=== PATIENT | male | born 1990 | race Two or more races ===

== ENCOUNTER 2021-02-18 15:01 | Emergency (ER) | payer MEDICAID, OTHER ==
[~2021-02-18] VITALS: Ht 167.6 cm; Wt 72.6 kg
[2021-02-18 16:18] VITALS: BP 129/75
[2021-02-18] MEDS ORDERED: methylPREDNISolone SOD SUCC 125 MG/2 ML VL IM ONE (16:45)
[2021-02-18] MEDS ORDERED: EPINEPHrine HCL 1 MG/1 ML AMP SC ONE (16:45)
== END 2021-02-18 17:25 | disposition home or self-care (01) ==
LOC: ER 15:01 → EDBD 15:01 → ER 17:25
DX: T78.40XA Allergy, unspecified, initial encounter (principal); L20.9 Atopic dermatitis, unspecified; F17.210 Nicotine dependence, cigarettes, uncomplicated; Z88.0 Allergy status to penicillin; Y92.89 Other specified places as the place of occurrence of the external cause
CPT/HCPCS: 96372; 99284; J0171; J2930

== ENCOUNTER 2021-09-25 02:30 | Emergency (ER) | payer MEDICAID ==
[~2021-09-25] VITALS: Ht 162.6 cm; Wt 72.6 kg
[2021-09-25 03:41] VITALS: BP 115/75
[2021-09-25] MEDS ORDERED: KETOROLAC TROMETH 30 MG/ML 1ML VIAL IM ONE (04:00)
== END 2021-09-25 04:31 | disposition home or self-care (01) ==
LOC: ER 02:30
DX: K64.4 Residual hemorrhoidal skin tags (principal); F17.210 Nicotine dependence, cigarettes, uncomplicated; Z88.0 Allergy status to penicillin
CPT/HCPCS: 96372; 99283; J1885

== ENCOUNTER 2022-07-29 05:22 | Emergency (ER) | payer MEDICAID ==
[~2022-07-29] VITALS: Ht 167.6 cm; Wt 69.5 kg
[2022-07-29] MEDS ORDERED: CLIN300C8 PO (07:03)
[2022-07-29] MEDS ORDERED: IBUP800T27 PO (07:03)
[2022-07-29] MEDS ORDERED: IBUPROFEN 800 MG TAB PO ONE (07:15)
[2022-07-29 07:41] VITALS: BP 127/65
== END 2022-07-29 07:43 | disposition home or self-care (01) ==
LOC: ER 05:22
DX: K04.7 Periapical abscess without sinus (principal); K08.89 Other specified disorders of teeth and supporting structures; F17.210 Nicotine dependence, cigarettes, uncomplicated; F12.90 Cannabis use, unspecified, uncomplicated; Z88.0 Allergy status to penicillin; Z88.8 Allergy status to other drugs, medicaments and biological substances

== ENCOUNTER 2022-09-29 12:14 | Emergency (ER) | payer MEDICAID ==
[~2022-09-29] VITALS: Ht 170.2 cm; Wt 70.2 kg
[~2022-09-29 12:14] MED LIST: CLIN300C8 PO; IBUP800T27 PO
[2022-09-29 13:52] VITALS: BP 137/97
[2022-09-29] MEDS ORDERED: IBUP800T27 PO (14:12)
[2022-09-29] MEDS ORDERED: CLIN300C8 PO (14:12)
== END 2022-09-29 14:25 | disposition home or self-care (01) ==
LOC: ER 12:14
DX: K04.7 Periapical abscess without sinus (principal); F17.210 Nicotine dependence, cigarettes, uncomplicated; F12.10 Cannabis abuse, uncomplicated; Z88.0 Allergy status to penicillin

== ENCOUNTER 2023-07-12 13:45 | Emergency (ER) | payer MEDICAID ==
[~2023-07-12] VITALS: Ht 170.2 cm; Wt 72.7 kg
[~2023-07-12 13:45] MED LIST changes: +CLIN300C70 PO; -CLIN300C8 PO; +IBUP-1456 PO; -IBUP800T27 PO
[2023-07-12 14:43] VITALS: BP 122/80; PULSE 80; RESP 18; TEMP 98.5; O2SAT 98
[2023-07-12] MEDS ORDERED: CLIN-203 PO (15:32)
[2023-07-12] MEDS ORDERED: IBUP-1456 PO (15:32)
== END 2023-07-12 15:45 | disposition home or self-care (01) ==
LOC: ER 13:45
DX: K04.7 Periapical abscess without sinus (principal); F17.210 Nicotine dependence, cigarettes, uncomplicated; F12.10 Cannabis abuse, uncomplicated; Z88.0 Allergy status to penicillin

== ENCOUNTER 2023-09-06 17:56 | Emergency (ER) | payer MEDICAID ==
[~2023-09-06] VITALS: Ht 170.2 cm; Wt 72.0 kg
[~2023-09-06 17:56] MED LIST changes: +CLIN-203 PO
[2023-09-06] MEDS ORDERED: CLIN300C70 PO (18:10)
[2023-09-06] MEDS ORDERED: ACE3T PO (18:10)
[2023-09-06] MEDS ORDERED: IBUP-1455 PO (18:10)
[2023-09-06] MEDS: KETOROLAC TROMETH 60MG/2ML VIAL IM ONE (21:43)
[2023-09-06] MEDS: TETANUS-DIPTH-ACEL PERTUSSIS 0.5ML SYR Tdap IM ONE (21:43)
[2023-09-06 21:54] VITALS: BP 122/80; PULSE 83; RESP 19; TEMP 98; O2SAT 99
== END 2023-09-06 21:55 | disposition home or self-care (01) ==
LOC: ER 17:56
DX: K04.7 Periapical abscess without sinus (principal); F17.210 Nicotine dependence, cigarettes, uncomplicated; F15.90 Other stimulant use, unspecified, uncomplicated; Z88.0 Allergy status to penicillin; Z88.8 Allergy status to other drugs, medicaments and biological substances; Z79.899 Other long term (current) drug therapy
CPT/HCPCS: 90471; 90715; 96372; 99284; J1885

== ENCOUNTER 2023-09-11 09:06 | Emergency (ER) | payer MEDICAID ==
[~2023-09-11] VITALS: Ht 170.2 cm; Wt 73.4 kg
[~2023-09-11 09:06] MED LIST changes: +ACE3T PO; +IBUP-1455 PO
[2023-09-11 09:55] VITALS: BP 140/84; PULSE 87; RESP 18; TEMP 98.4; O2SAT 96
[2023-09-11] MEDS: DexAMETHasone SOD PHOS 10MG/1ML VIAL INJ IM ONE (11:04)
[2023-09-11] MEDS: KETOROLAC TROMETH 60MG/2ML VIAL IM ONE (11:05)
== END 2023-09-11 11:07 | disposition home or self-care (01) ==
LOC: ER 09:06
DX: K04.7 Periapical abscess without sinus (principal); F17.210 Nicotine dependence, cigarettes, uncomplicated; F12.10 Cannabis abuse, uncomplicated; Z88.0 Allergy status to penicillin
CPT/HCPCS: 96372; 99284; J1100; J1885

== ENCOUNTER 2023-10-16 12:10 | Emergency (ER) | payer MEDICAID ==
[~2023-10-16] VITALS: Ht 170.2 cm; Wt 72.6 kg
[~2023-10-16 12:10] MED LIST changes: +CLIN1CAP70 PO; -CLIN300C70 PO
[2023-10-16 15:07] VITALS: BP 136/84; PULSE 78; RESP 18; TEMP 98.8; O2SAT 98
[2023-10-16] MEDS ORDERED: CLIN-203 PO (15:28)
[2023-10-16] MEDS: KETOROLAC TROMETH 30 MG/ML 1ML VIAL IM ONE (15:33)
== END 2023-10-16 15:37 | disposition home or self-care (01) ==
LOC: ER 12:10
DX: K02.9 Dental caries, unspecified (principal); F17.210 Nicotine dependence, cigarettes, uncomplicated; F15.90 Other stimulant use, unspecified, uncomplicated; Z88.0 Allergy status to penicillin; Z88.8 Allergy status to other drugs, medicaments and biological substances; Z79.899 Other long term (current) drug therapy
CPT/HCPCS: 96372; 99283; J1885

== ENCOUNTER 2023-12-04 13:00 | Emergency (ER) | payer MEDICAID ==
[~2023-12-04] VITALS: Ht 167.6 cm; Wt 68.0 kg
[2023-12-04 16:17] VITALS: BP 106/71; PULSE 102; RESP 18; TEMP 98.4; O2SAT 95
== END 2023-12-04 16:18 | disposition left against medical advice (07) ==
LOC: ER 13:00
DX: K08.89 Other specified disorders of teeth and supporting structures (principal); Z53.21 Procedure and treatment not carried out due to patient leaving prior to being seen by health care provider

== ENCOUNTER 2024-02-17 08:41 | Emergency (ER) | payer MEDICAID ==
[~2024-02-17] VITALS: Ht 170.2 cm; Wt 67.2 kg
[2024-02-17 09:07] VITALS: BP 120/90; PULSE 80; RESP 18; TEMP 97.6; O2SAT 98
[2024-02-17] MEDS: KETOROLAC TROMETH 60MG/2ML VIAL IM ONE (10:13)
[2024-02-17] MEDS ORDERED: IBUP1TAB5 PO (10:32)
== END 2024-02-17 10:38 | disposition home or self-care (01) ==
LOC: ER 08:41
DX: G89.29 Other chronic pain (principal); M54.59 Other low back pain; F12.90 Cannabis use, unspecified, uncomplicated; F17.210 Nicotine dependence, cigarettes, uncomplicated; Z88.0 Allergy status to penicillin; Z88.8 Allergy status to other drugs, medicaments and biological substances; Z79.899 Other long term (current) drug therapy; Z79.1 Long term (current) use of non-steroidal anti-inflammatories (NSAID); Z98.890 Other specified postprocedural states
CPT/HCPCS: 96372; 99283; J1885

== ENCOUNTER 2024-04-07 01:20 | Emergency (ER) | payer MEDICAID ==
[~2024-04-07] VITALS: Ht 167.6 cm; Wt 69.7 kg
[~2024-04-07 01:20] MED LIST changes: +IBUP1TAB5 PO
[2024-04-07] MEDS ORDERED: HYDR2.5C39 TOP (02:58)
[2024-04-07] MEDS ORDERED: DOXY100C4 PO (02:58)
[2024-04-07] MEDS: KETOROLAC TROMETH 60MG/2ML VIAL IM ONE (03:09)
[2024-04-07] MEDS: HYDROcodone-ACET 5/325MG TAB PO ONE (03:09)
[2024-04-07 03:23] VITALS: BP 102/72; PULSE 64; RESP 18; TEMP 97.7; O2SAT 98
== END 2024-04-07 03:25 | disposition home or self-care (01) ==
LOC: ER 01:20
DX: K64.8 Other hemorrhoids (principal); L02.411 Cutaneous abscess of right axilla; F17.210 Nicotine dependence, cigarettes, uncomplicated; F15.90 Other stimulant use, unspecified, uncomplicated; Z88.0 Allergy status to penicillin; Z88.8 Allergy status to other drugs, medicaments and biological substances; Z79.899 Other long term (current) drug therapy
CPT/HCPCS: 96372; 99283; J1885